=== PATIENT | male | born 1940 | race Caucasian/White ===

== ENCOUNTER 2019-04-21 08:30 | Inpatient (IN) | payer MEDICARE, MEDICAID ==
[2019-04-19 13:13] LABS: BASOPHILS # (AUTO) 0.1 X10'3 (0-0.2); EOSINOPHILS # (AUTO) 0.2 X10'3 (0-0.9); HEMATOCRIT 49.9 % (42.0-52.0); LYMPHOCYTES # (AUTO) 2.4 X10'3 (1.1-4.8); MONOCYTES # (AUTO) 0.9 X10'3 (0-0.9)
[2019-04-19 13:14] LABS: BASOPHILS % (AUTO) 0.8 % (0-1); EOSINOPHILS % (AUTO) 2.4 % (0-6); HEMOGLOBIN 16.8 g/dl (14.0-17.9); LYMPHOCYTES % (AUTO) 33.8 % (21-51); MEAN CORPUSCULAR HEMOGLOBIN 33.2 PG (27.0-31.0); MEAN CORPUSCULAR HGB CONC 33.6 g/dL (33.0-36.5); MEAN CORPUSCULAR VOLUME 98.8 FL (78-98); MEAN PLATELET VOLUME 10.3 FL (7.4-10.4); MONOCYTES % (AUTO) 12.7 % (2-12); NEUTROPHILS # (AUTO) 3.6 X10'3 (1.8-7.7); NEUTROPHILS % (AUTO) 50.3 % (42-75); PLATELET COUNT 130 X10'3 (140-440); RED BLOOD COUNT 5.05 X10'6 (4.70-6.10); RED CELL DISTRIBUTION WIDTH 14.8 % (11.5-14.5); WHITE BLOOD COUNT 7.2 X10'3 (4.5-11.0)
[2019-04-19 13:24] LABS: PARTIAL THROMBOPLASTIN TIME 31 SECONDS (22-32)
[2019-04-19 13:27] LABS: ALANINE AMINOTRANSFERASE 38 U/L (12-78); ALBUMIN 3.6 G/DL (3.4-5.0); ALBUMIN/GLOBULIN RATIO 0.9 (1.1-1.5); ALKALINE PHOSPHATASE 71 IU/L (46-116); ANION GAP 11 (8-16); ASPARTATE AMINO TRANSFERASE 36 U/L (10-37); BILIRUBIN,TOTAL 0.6 MG/DL (0.1-1.0); BLOOD UREA NITROGEN 12 MG/DL (7-18); CALCIUM 9.3 MG/DL (8.5-10.1); CHLORIDE 104 MMOL/L (99-107); GLUCOSE 108 MG/DL (70-104); POTASSIUM 3.5 MMOL/L (3.5-5.1); SODIUM 141 MMOL/L (135-145); TOTAL PROTEIN 7.8 G/DL (6.4-8.2); eGFR 59 ML/MIN
[2019-04-19 13:38] LABS: PLATELET ESTIMATE DECREASED
[2019-04-19 13:40] LABS: GIANT PLATELET FEW; LARGE PLATELETS FEW
[~2019-04-21] VITALS: Ht 188 cm; Wt 132.6 kg
[2019-04-21] VITALS (23 sets, daily range): BP systolic 92–144; BP diastolic 48–91
[~2019-04-21 08:30] MED LIST: ALBU18HF2 INH; ARIP5TAB60 PO; BUDE10.2 INH; BUPR100T16 PO; CARV6.253 PO; CLOP75TA33 PO; HYDR-4353 PO; MSC30T PO; NITR0.4T51 SL
[2019-04-21] MEDS ORDERED: LORazepam 0.5 MG tablet PO PRN (09:05)
[2019-04-21] MEDS ORDERED: diphenhydrAMINE 25mg capsule PO PRN ×2 (09:05→14:30)
[2019-04-21] MEDS ORDERED: nitroGLYCERIN 0.4mg SUBLingual tab SL PRN ×3 (09:05→18:35)
[2019-04-21] MEDS ORDERED: NAPR220C15 PO (09:09)
[2019-04-21] MEDS ORDERED: UMEC62.5 (09:09)
[2019-04-21] MEDS ORDERED: ATOR40TA PO (09:09)
[2019-04-21] MEDS ORDERED: LISI10TA4 PO (09:09)
[2019-04-21] MEDS ORDERED: LIDOcaine 1% (10mg/ml)w/preservative injection 20ml MDV ONE (09:33)
[2019-04-21] MEDS ORDERED: iohexol 350 MG/ML 50ML vial IV ONE ×2 (09:33→10:39)
[2019-04-21] MEDS ORDERED: iohexol 350MG/ML 100ml bottle IV ONE (09:33)
[2019-04-21] MEDS ORDERED: fentaNYL/PF 50MCG/1 ML 2ML syringe ONE (09:33)
[2019-04-21] MEDS ORDERED: midazolam 2 mg/2 ml injection ONE ×3 (09:33→10:31)
[2019-04-21] MEDS ORDERED: non-formulary drug (Albuterol Sulfate (Ventolin Hfa) 2 PUFFS) INH SCH (14:15)
[2019-04-21] MEDS ORDERED: BUPR100T5 PO (14:24)
[2019-04-21] MEDS ORDERED: magnesium 4gm in 100ml NS 100 ML IV PRN (14:30)
[2019-04-21] MEDS ORDERED: ceFAZolin inj. 3,000 MG in normal saline 100ml IV soln 100 ML IV ONE (14:30)
[2019-04-21] MEDS ORDERED: potassium Cl 20mEq/100mL bag 100 ML IV PRN (14:30)
[2019-04-21] MEDS ORDERED: magnesium 2GM in 50ml NS 50 ML IV PRN (14:30)
[2019-04-21] MEDS ORDERED: albuterol 2.5 MG/3 ML nebule NEB PRN (14:30)
[2019-04-21] MEDS ORDERED: ondansetron/PF 4mg/2ml inj IV PRN ×2 (14:30→18:35)
[2019-04-21] MEDS ORDERED: dextrose 50%-water 50ml dispensing syringe IV PRN (14:30)
[2019-04-21] MEDS: normal saline 1,000 ML IV SCH ×2 (16:03→20:34)
[2019-04-21] MEDS ORDERED: OXAZEpam 15mg capsule PO PRN (18:35)
[2019-04-21] MEDS ORDERED: proCHLORperazine 10 MG/2 ml inj IV PRN (18:35)
[2019-04-21] MEDS: normal saline 1000ml 1,000 ML IV SCH (18:35)
--- NOTE | 2019-04-21 18:38 | NUR ---
Problems reprioritized. Patient report given, questions answered & plan of care reviewed with TERESA Brown.
[2019-04-21] MEDS ORDERED: HYDROcodone/acetaminophen 10/325mg tab PO PRN (20:00)
[2019-04-21] MEDS: NAPROXEN SODIUM 220 MG PO SCH (20:00)
[2019-04-21] MEDS ORDERED: non-formulary drug (Budesonide/Formoterol Fumarate (Symbicort 160-4.5 Mcg Inhaler) 2 PUFFS INH SCH (20:00)
[2019-04-21] MEDS: morphine ER 30mg tablet PO SCH (20:33)
[2019-04-21] MEDS: metoprolol tartrate 12.5mg (1/2 tablet) PO SCH (20:33)
[2019-04-21 20:37] LABS: HEMOGLOBIN 15.3 g/dl (14.0-17.9); RED BLOOD COUNT 4.61 X10'6 (4.70-6.10)
[2019-04-21 20:39] LABS: HEMATOCRIT 45.7 % (42.0-52.0); MEAN CORPUSCULAR HEMOGLOBIN 33.1 PG (27.0-31.0); MEAN CORPUSCULAR HGB CONC 33.4 g/dL (33.0-36.5); MEAN CORPUSCULAR VOLUME 99.1 FL (78-98); RED CELL DISTRIBUTION WIDTH 15.1 % (11.5-14.5); WHITE BLOOD COUNT 5.1 X10'3 (4.5-11.0)
[2019-04-21 20:41] LABS: ALBUMIN 3.4 G/DL (3.4-5.0); ANION GAP 7 (8-16); BLOOD UREA NITROGEN 23 MG/DL (7-18); BUN/CREATININE RATIO 16.9 (5.4-32.0); CALCIUM 8.8 MG/DL (8.5-10.1); CHLORIDE 103 MMOL/L (99-107); CREATININE 1.36 MG/DL (0.60-1.10); GLUCOSE 156 MG/DL (70-104); POTASSIUM 3.7 MMOL/L (3.5-5.1); SODIUM 138 MMOL/L (135-145); eGFR 51 ML/MIN
[2019-04-21 20:45] LABS: PARTIAL THROMBOPLASTIN TIME 25 SECONDS (22-32)
[2019-04-21 21:23] LABS: PLATELET COUNT 120 X10'3 (140-440)
[2019-04-21] MEDS: HYDROcodone/acetaminophen 5mg/325mg tablet PO PRN (21:36)
[2019-04-21] MEDS: potassium Cl 20 mEq SR tablet PO PRN (21:37)
[2019-04-21] MEDS: budesonide 0.5mg/2ml UD nebule IH SCH (23:22)
[2019-04-21] MEDS: albuterol 2.5 MG/3 ML nebule NEB SCH (23:22)
[2019-04-22] VITALS (7 sets, daily range): BP systolic 115–136; BP diastolic 50–77
[2019-04-22] MEDS: normal saline 1000ml 1,000 ML IV SCH (02:53)
[2019-04-22] MEDS: albuterol 2.5 MG/3 ML nebule NEB SCH ×4 (03:53→21:07)
[2019-04-22] MEDS: HYDROcodone/acetaminophen 5mg/325mg tablet PO PRN (05:04)
[2019-04-22] MEDS: normal saline 1,000 ML IV SCH (05:05)
[2019-04-22 06:11] LABS: ALBUMIN 3.6 G/DL (3.4-5.0); ANION GAP 9 (8-16); BLOOD UREA NITROGEN 18 MG/DL (7-18); CALCIUM 8.9 MG/DL (8.5-10.1); CHLORIDE 103 MMOL/L (99-107); CREATININE 1.06 MG/DL (0.60-1.10); GLUCOSE 143 MG/DL (70-104); SODIUM 135 MMOL/L (135-145); TOTAL CARBON DIOXIDE 22.8 MMOL/L (24-32); eGFR 68 ML/MIN
[2019-04-22 06:15] LABS: POTASSIUM 4.2 MMOL/L (3.5-5.1)
--- NOTE | 2019-04-22 06:34 | NUR ---
Problems reprioritized. Patient report given, questions answered & plan of care reviewed with Marisela MOORE.
[2019-04-22] MEDS: metoprolol tartrate 12.5mg (1/2 tablet) PO SCH ×3 (07:56→20:20)
[2019-04-22] MEDS: lisinopril 10 MG tablet PO SCH (07:56)
[2019-04-22] MEDS: morphine ER 30mg tablet PO SCH ×3 (07:57→20:18)
[2019-04-22] MEDS: atorvastatin 20mg tablet PO SCH (07:57)
[2019-04-22] MEDS: NAPROXEN SODIUM 220 MG PO SCH ×2 (07:57→20:00)
[2019-04-22] MEDS ORDERED: MESSAGE TO NURSING PO ONE ×2 (08:00→17:30)
[2019-04-22] MEDS: budesonide 0.5mg/2ml UD nebule IH SCH ×2 (08:13→21:07)
[2019-04-22 08:14] LABS: MAGNESIUM 2.2 MG/DL (1.5-2.4)
[2019-04-22 08:31] LABS: ABG BASE EXCESS -2.5 mmol/L (-2.0-3.0); ABG HCO3 24.3 mmol/L (22.0-26.0); ABG OXYGEN SATURATION 96.3 % (95-98); ABG PCO2 (T) 49.5 mmHg (35.0-45.0); ABG PH (T) 7.309 (7.350-7.450); ABG PO2 (T) 85.3 mmHg (83-108); ALLEN'S TEST Positive; FCOHb 0.7 % (0.5-1.5); FLOW 4 L/min; FMetHb 0.2 % (0.3-1.12); FO2Hb 95.4 % (94-100); TOTAL HEMOGLOBIN 15.5 G/dl (14.0-17.9)
[2019-04-22] MEDS ORDERED: ringers solution, lacted 1,000 ML IV ONE (14:49)
[2019-04-22] MEDS ORDERED: iohexol 350MG/ML 100ml bottle IV ONE (15:58)
--- NOTE | 2019-04-22 16:36 | NUR ---
DM consult: Pt with A1c 7.0 with no documented hx DM. Pt seen at bedside states he recently had elevated BG levels and was told to get a glucometer. 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 BG range 108-156 during admission on heart healthy diet eating 75-100% meeting nutrient needs. Pt with no additional questions about CHO controlled diet at this time. Pt pending surgery tomorrow, provided with written and verbal heart healthy and protein post cardiac surgery educations with RD contact information. Pt reports he is still hungry following meals and agrees to double eggs QD at breakfast and double protein TID. Pt states he dislikes cream of wheat and has no other food preferences at this time, d/w dietary. Pt denies food allergies, difficulty chewing/swallowing, or constipation/diarrhea. [facility] 04/21. Will continue to follow. Addendum: 04/22/19 at [address] Amended: Links added.
--- NOTE | 2019-04-22 18:12 | NUR ---
Problems reprioritized. Patient report given, questions answered & plan of care reviewed with TERESA Brown.
--- NOTE | 2019-04-22 19:33 | NUR ---
Patient in room MED 310. I have received report from Marisela Olson and had the opportunity to ask questions and assume patient care.
[2019-04-22] MEDS: potassium Cl 20 mEq SR tablet PO PRN (20:18)
[2019-04-22] MEDS: HYDROcodone/acetaminophen 10/325mg tab PO PRN (20:18)
[2019-04-23] MEDS ORDERED: MESSAGE TO NURSING PO ONE ×3 (01:30→05:30)
[2019-04-23] MEDS: HYDROcodone/acetaminophen 10/325mg tab PO PRN (01:38)
[2019-04-23 02:00] VITALS: BP 139/70
[2019-04-23] MEDS: morphine ER 30mg tablet PO SCH (02:39)
--- NOTE | 2019-04-23 02:58 | NUR ---
At 2200 patient was scheduled to receive MS contin 30mg, patient was given the dose along with his other medications, a few minutes later patient began vomiting. Patient did not want to take any pills because he was afraid of vomiting i offered him Zofran but he said that he would be okay. Patient did not complain of pain until 0200. At this time I was coming back from my lunch break and was informed by Charge nurse Negrita that he would like a one of his PRN Hydrocodone. After checking on my other two patients I brought him the hydrocodone. After this he explained that since he vomited his Ms Contin earlier he would like to get his dose now. I explained to him that i need to discuss with pharmacy about how to go about rescheduling the dose and that it would take a few minutes. The patient then became irate saying we were "Denying him his medication." I told him that i was still trying to sort out how we could give him the medication. After this he told me that he was leaving the hospital and began packing he's belongings. Tank Setter and Charge Nurse then talked to the patient and were trying to convince him to stay. I called Grant Kessler and made him aware of the situation and asked if we could give the patient a dose of MS Contin out of schedule. Victoria gave me the order and when i talked to the patient he was in the hallway with his normal clothes on trying to walk off of the unit. gelatin plant supervisor and Charge were still with him. Once i explained that he could get his dose he agreed to come back to his room and agreed to stay and have the surgery done.
[2019-04-23] MEDS ORDERED: MALTODEXTRIN/FRUCTOSE 0.68 KCAL/ML LIQUID 296ML BOTTLE PO ONE (03:30)
[2019-04-23] MEDS: albuterol 2.5 MG/3 ML nebule NEB SCH (04:10)
[2019-04-23] MEDS ORDERED: ROPIVAcaine 0.5% (5mg/ml) 30ml vial ONE (05:11)
[2019-04-23] MEDS ORDERED: ceFAZolin 1,000 MG/D5W 50ML IVPB Premixed bag IV ONE (05:30)
[2019-04-23] MEDS ORDERED: cefazolin/dext.iso 2gm/50ml 50 ML IV ONE (05:30)
[2019-04-23] MEDS ORDERED: insulin glargine (Lantus) pen - multi-dose SQ PRN (05:30)
[2019-04-23] MEDS ORDERED: gabapentin 400mg capsule PO ONE (05:30)
[2019-04-23] MEDS ORDERED: insulin regular, human 100 UNIT in normal saline 100ml IV soln 100 ML IV SCH ×2 (05:30)
[2019-04-23 06:00] VITALS: BP 121/62
[2019-04-23] MEDS ORDERED: LORazepam 2 mg/ml vial IV ONE (06:00)
[2019-04-23] MEDS ORDERED: famotidine 20mg tablet PO ONE (06:00)
--- NOTE | 2019-04-23 06:00 | NUR ---
Patient in room MED 310. I have received report from TERESA Brown and had the opportunity to ask questions and assume patient care.
--- NOTE | 2019-04-23 07:03 | NUR ---
Problems reprioritized. Patient report given, questions answered & plan of care reviewed with Hilda MOORE.
[2019-04-23 07:55] VITALS: BP_SYST 118
[2019-04-23] MEDS: lisinopril 10 MG tablet PO SCH (07:55)
[2019-04-23] MEDS: atorvastatin 20mg tablet PO SCH (07:55)
[2019-04-23] MEDS: metoprolol tartrate 12.5mg (1/2 tablet) PO SCH (07:55)
[2019-04-23] MEDS: NAPROXEN SODIUM 220 MG PO SCH (07:56)
[2019-04-23] MEDS ORDERED: mupirocin 2% nasal ointment 1gm UD NS SCH (08:00)
[2019-04-23 08:03] LABS: ALANINE AMINOTRANSFERASE 31 U/L (12-78); ALBUMIN 3.3 G/DL (3.4-5.0); ALBUMIN/GLOBULIN RATIO 0.9 (1.1-1.5); ALKALINE PHOSPHATASE 73 IU/L (46-116); ANION GAP 5 (8-16); ASPARTATE AMINO TRANSFERASE 29 U/L (10-37); BILIRUBIN,TOTAL 0.7 MG/DL (0.1-1.0); BLOOD UREA NITROGEN 10 MG/DL (7-18); BUN/CREATININE RATIO 10.5 (5.4-32.0); CALCIUM 8.8 MG/DL (8.5-10.1); CHLORIDE 104 MMOL/L (99-107); CREATININE 0.95 MG/DL (0.60-1.10); GLUCOSE 120 MG/DL (70-104); POTASSIUM 4.3 MMOL/L (3.5-5.1); SODIUM 140 MMOL/L (135-145); TOTAL CARBON DIOXIDE 30.9 MMOL/L (24-32); TOTAL PROTEIN 7.1 G/DL (6.4-8.2); eGFR 77 ML/MIN
--- NOTE | 2019-04-23 08:25 | NUR ---
Patient refused surgery, asked to be discharged. okayed patient discharge after discussing risks and benefits of surgery. Patient verbalized understanding that follow-up with efficiency clerk is strongly recommended. All discharge instructions reviewed and discussed with patient, no questions at this time. Educated on warning signs and symptoms, disease management, and recommended follow up. PIV discontinued, cannula intact. Clean, dry dressing in place. Patient refused full physical assessment. Patient removed nuclear monitoring technician, armband, and SpO2 monitor. All personal belongings collected and sent with patient. Patient refused escort out of facility. Patient ambulated out of facility using walker from home with daughter at 0825.
--- NOTE | 2019-04-23 12:51 | NUR ---
I have reviewed and agree with all interventions, assessments performed and documented by Coni MOORE.
== END 2019-04-23 08:25 | disposition home or self-care (01) | DRG 287 ==
LOC: SSTAY O 08:30 → MED 3N 19:41
PROVIDERS: ADMIT Thoracic Surgery (Cardiothoracic Vascular Surgery); ATTEND Internal Medicine Cardiovascular Disease
PROC: 4A023N7 Measurement of Cardiac Sampling and Pressure, Left Heart, Percutaneous Approach (ICD-10-PCS; principal; 2019-04-21)
PROC: B2111ZZ Fluoroscopy of Multiple Coronary Arteries using Low Osmolar Contrast (ICD-10-PCS; 2019-04-21)
PROC: B2151ZZ Fluoroscopy of Left Heart using Low Osmolar Contrast (ICD-10-PCS; 2019-04-21)
PROC: B3111ZZ Fluoroscopy of Right Brachiocephalic-Subclavian Artery using Low Osmolar Contrast (ICD-10-PCS; 2019-04-21)
PROC: B3121ZZ Fluoroscopy of Left Subclavian Artery using Low Osmolar Contrast (ICD-10-PCS; 2019-04-21)
PROC: B41F1ZZ Fluoroscopy of Right Lower Extremity Arteries using Low Osmolar Contrast (ICD-10-PCS; 2019-04-21)
PROC: B3201ZZ Computerized Tomography (CT Scan) of Thoracic Aorta using Low Osmolar Contrast (ICD-10-PCS; 2019-04-22)
PROC: B32T1ZZ Computerized Tomography (CT Scan) of Left Pulmonary Artery using Low Osmolar Contrast (ICD-10-PCS; 2019-04-22)
PROC: B32S1ZZ Computerized Tomography (CT Scan) of Right Pulmonary Artery using Low Osmolar Contrast (ICD-10-PCS; 2019-04-22)
DX: I25.10 Atherosclerotic heart disease of native coronary artery without angina pectoris (principal); E78.5 Hyperlipidemia, unspecified; F17.200 Nicotine dependence, unspecified, uncomplicated; F31.9 Bipolar disorder, unspecified; G89.29 Other chronic pain; I10 Essential (primary) hypertension; R94.39 Abnormal result of other cardiovascular function study; M54.9 Dorsalgia, unspecified; I73.9 Peripheral vascular disease, unspecified; J44.9 Chronic obstructive pulmonary disease, unspecified; Z86.711 Personal history of pulmonary embolism; Z86.718 Personal history of other venous thrombosis and embolism; Z86.79 Personal history of other diseases of the circulatory system; Z98.61 Coronary angioplasty status; Z99.81 Dependence on supplemental oxygen
CPT/HCPCS: 36415; 36600; 71046; 71260; 80048; 80053; 82803; 83036; 83735; 85018; 85025; 85027; 85576; 85610; 85730; 86885; 86900; 86901; 86920; 87081; 93005; 93458; 93880; 93970; 94060; 94640; 94760; 97116; 97162; 97530; 99152; 99153; A4620; A6258; C1760; C1769; GO378; J1644; J1815; J2001; J2250; J2405; J2795; J3010; J3370; J3475; J7030; J7120; J7626; Q0163; Q9967